=== PATIENT | male | born 1945 | race Hispanic/Latino ===

== ENCOUNTER → 2024-06-25 | Outpatient (CLI) | payer MEDICARE ==
[~2024-06-25] VITALS: Ht 172.7 cm; Wt 80.0 kg
[~2024-06-25] MED LIST: APIX5TAB PO; ATOR10TA69 PO; LEVO5TAB13 PO; METO50TA18 PO; TAMS-1 PO
--- NOTE | 2024-06-25 08:04 | EKG ---
[facility] Test Date: 2024-06-25 Test Time: 07:55:06 Pat Name: RICH KINCAID Department: [facility] Room: Gender: M [employer] In[employer]: [id number] : 1945 Requested By: LINDA FREITAS Order Number: [id number] Reading MD: Lyn Cabral Measurements Intervals [place] Rate: 53 P: 0 GA: 150 QRS: -9 QRSD: 84 T: 9 QT: 423 QTc: 398 Interpretive Statements Sinus rhythm No previous ECG available for comparison Electronically Signed On 06-25-2024 10:22:26 CDT by Lyn Cabral Please click the below link to view image of tracing.
[2024-06-25 08:12] VITALS: BP 167/80; PULSE 52; RESP 18; TEMP 97.9
[2024-06-25 08:24] LABS: CREATININE 1.3 mg/dL (0.5-1.3); POTASSIUM 3.8 mmol/L (3.5-5.1)
[2024-06-25 08:25] LABS: BASOPHILS # (AUTO) 0.04 K/uL (0.00-0.20); BASOPHILS % (AUTO) 0.7 % (0.0-5.0); EOSINOPHILS # (AUTO) 0.11 K/uL (0.00-0.70); EOSINOPHILS % (AUTO) 1.8 % (0.0-8.0); HEMATOCRIT 44.4 % (42-54); IMMATURE GRANULOCYTE ABSOLUTE 0.04 K/uL (0-1); LYMPHOCYTES # (AUTO) 2.1 K/uL (1.0-4.8); LYMPHOCYTES % (AUTO) 33.7 % (21.0-51.0); MEAN CORPUSCULAR HEMOGLOBIN 29.1 pg (27.0-33.0); MEAN CORPUSCULAR HGB CONC 33.8 g/dL (32.0-36.0); MONOCYTES # (AUTO) 0.8 K/uL (0.1-1.0); MONOCYTES % (AUTO) 12.4 % (3.0-13.0); NEUTROPHILS # (AUTO) 3.1 K/uL (1.8-7.7); NEUTROPHILS % (AUTO) 50.7 % (40.0-77.0); PLATELET COUNT (AUTO) 157 K/uL (130-400); RED BLOOD CELL COUNT(AUTO) 5.16 MIL/uL (4.50-6.20); RED CELL DISTRIBUTION WIDTH 13.1 % (11.0-15.5); WHITE BLOOD COUNT (AUTO) 6.1 K/uL (4.8-10.8)
[2024-06-25 09:11] LABS: INR 1.13 (0.85-1.15); PROTHROMBIN TIME 11.8 SEC (9.6-11.6)
[2024-06-25 09:13] LABS: PARTIAL THROMBOPLASTIN TIME 31.9 SEC (26.3-35.5)
== END | disposition home or self-care (01) ==
LOC: DAH 07:12 → EDSTATUS 07-01 08:00
PROVIDERS: ATTEND Internal Medicine Cardiovascular Disease
DX: Z01.810 Encounter for preprocedural cardiovascular examination (principal); I48.0 Paroxysmal atrial fibrillation
CPT/HCPCS: 36415; 80048; 85025; 85610; 85730; 93005